=== PATIENT | male | born 1950 | race Caucasian/White ===

== ENCOUNTER 2020-09-23 09:01 | Outpatient (RCR) | payer MEDICARE, MEDICAID, SELFPAY ==
--- NOTE | 2020-09-23 10:20 | PTOPEVAL ---
PHYSICAL THERAPY PRE-OPERATIVE INSTRUCTION FOR TKA. Thank you for referring Prince Suero to [facility][Note 3].? Please review, sign, date and return this plan of care CARA. I agree with and certify that the following plan of care is medically necessary. Referring Physician Date Attending Provider: Micheal Pleitez MD Evaluation Diagnosis L TKA pre-op training Onset 2 years Cause OA Subjective Information Prince is here today for pre- Query Text:As Reported By Patient/ operative training for left Family TKA on 10/08/2020. He has been experiencing pain and functional difficulty in the left knee for 2 years with significantly worsening symptoms for the last 7- 10months. discussed with patient the possibility of getting a nerve block in the leg and the appropriate precautions to take in that case. Discussed pre and post operative exercises and care. He states that he will have home health therapy immediately after surgery and then will likely go to outpatient therapy after that. Prior Level of Function Home Setting Environmental Barriers Doorways, Narrow,Railing, Ascend Left,Stairs, Greater than 4 Living Situation Alone Support Available Local Family Support Cargiver Responsibilities Comment lives in a camper/5th wheel. Discussed how to get into/out of the camper, how to use the toilet, and how to shower safely. He thinks that he might be able to fit a small shower chair in the shower and will plan to check that out before surgery. Pain Assessment Timing of Pain Assessment Timing of Pain Assessment Assessment Pain Scale Pain Scale Used Numeric (1 - 10) Self Report Pain Assessment Left Knee(s) Reported Pain Level 8 Pain Description Aching,Sharp Pain Score Pain Score 8: Self Report Interventions Used Interventions Used By Clinicians Exercise Lower Extremity Range of Motion Knee Range of Motion Right Kn
== END 2020-12-08 09:31 | disposition home or self-care (01) ==
LOC: ANHPT 09:01
PROVIDERS: PCP Physician Assistant; Visit Provider Orthopaedic Surgery
DX: M17.12 Unilateral primary osteoarthritis, left knee (principal)
CPT/HCPCS: 97110; 97161

== ENCOUNTER 2020-09-29 10:33 | Outpatient (CLI) | payer MEDICARE, MEDICAID, SELFPAY ==
--- NOTE | 2020-09-29 11:38 | ECG_ITS ---
Measurements Intervals [place] Rate: 75 P: 43 PA: 164 QRS: 5 QRSD: 136 T: 22 QT: 382 QTc: 428 Interpretive Statements SINUS RHYTHM RIGHT BUNDLE BRANCH BLOCK ABNORMAL ECG Electronically Signed On 09-29-2020 12:50:47 PRODUCTION QUALITY MANAGER by Sid Brown D.O.
[2020-09-29 12:16] LABS: Basophils Absolute Auto 0.1 K/mm3 (0.0-0.1); Basophils Percent Auto 0.7 % (0.2-1.2); Eosinophils Absolute Auto 0.2 K/mm3 (0-0.3); Hematocrit 41.3 % (42.0-52.0); Hemoglobin 12.9 g/dL (14.0-18.0); Immature Granulocyte Absolute 0.03 K/mm3 (0.00-0.031); Immature Granulocyte Percent A 0.4 % (0-0.5); Lymphocytes Absolute Auto 2.38 K/mm3 (0.9-3.2); Lymphocytes Percent Auto 31.4 % (18.3-44.2); Mean Corpuscular HGB Conc 31.2 g/dl (32-36); Mean Corpuscular Hemoglobin 25.9 pg (26-34); Mean Corpuscular Volume 82.9 fl (80-100); Mean Platelet Volume 9.7 fl (7.4-10.4); Monocytes Absolute Auto 0.6 K/mm3 (0.1-0.6); Monocytes Percent Auto 8.1 % (2.6-8.5); Neutrophils Absolute Auto 4.4 K/mm3 (1.3-6.7); Neutrophils Percent Auto 57.4 % (45.5-73.1); Platelet Count Result 288 k/mm3 (150-375); Red Blood Count 4.98 M/mm3 (4.6-6.20); Red Cell Distribution Width 14.9 % (11.5-14.5); White Blood Count 7.6 K/mm3 (4.5-10.0)
[2020-09-29 12:20] LABS: Add Urine Microscopic? YES; Appearance Urine Clear (Clear); Bilirubin Urine Negative (Negative); Blood Urine Negative (Negative); Color Urine Yellow (Yellow); Glucose Urine UA 3+ mg/dL (Negative); Ketones Urine Negative (Negative); Leukocyte Esterase Ur Negative LEU/UL (Negative); Nitrate Urine Negative (Negative); Protein Urine Negative (Negative); RBC Urine 0-2 /hpf (0-2); Specific Grav Ur 1.013 (1.001-1.035); Urobilinogen Urine Negative mg/dL (<2.0); WBC Urine 0-3 /hpf
[2020-09-29 12:24] LABS: INR 0.9; Prothrombin Time 12.5 Seconds (11.1-14.7)
[2020-09-29 12:25] LABS: Anion Gap 6 mmol/L (8-16); Blood Urea Nitrogen 15 mg/dL (9-20); Calcium 8.6 mg/dL (8.4-10.2); Carbon Dioxide 28 mmol/L (22-30); Chloride 101 mmol/L (98-107); Estimated Glomerular Filt Rate 60; Glucose 204 mg/dL (75-110); Partial Thromboplastin Time 24.7 SECONDS (22.3-36.8); Potassium 4.5 mmol/L (3.4-5.0); Sodium 135 mmol/L (137-145)
[2020-09-29 14:39] LABS: Urine Cotinine NEGATIVE
== END 2020-09-29 10:34 | disposition home or self-care (01) ==
LOC: ANHSURGERY 10:35
PROVIDERS: PCP Physician Assistant; Visit Provider Orthopaedic Surgery
DX: Z01.818 Encounter for other preprocedural examination (principal); M17.12 Unilateral primary osteoarthritis, left knee; R94.31 Abnormal electrocardiogram [ECG] [EKG]
CPT/HCPCS: 80048; 80307; 81001; 82040; 83036; 85025; 85610; 85730; 86850; 86900; 86901; 87081; 93005